=== PATIENT | female | born 1965 | race Caucasian/White ===

== ENCOUNTER 2018-09-26 06:56 | Day surgery (SDC) | payer BC ==
[2018-09-26] MEDS ORDERED: FENTAnyl 50 MCG/ML VIAL (09:21)
[2018-09-26] MEDS ORDERED: MIDAZOLAM 1 MG/ML 2 ML INJ (09:21)
== END 2018-09-26 16:43 | disposition home or self-care (01) ==
LOC: GIL 06:56
DX: R19.4 Change in bowel habit (principal); K64.8 Other hemorrhoids
CPT/HCPCS: 45378; 88305